=== PATIENT | female | born 1940 | race Caucasian/White ===

== ENCOUNTER 2016-09-29 08:20 | Observation (INO) ==
[2016-09-29] MEDS ORDERED: 0.9 % SODIUM CHLORIDE 1,000 ML IV ONE ×2 (08:34→09:39)
[2016-09-29 09:08] LABS: Basophils # (Auto) 0 K/mcL (0.0-0.3); Basophils % (Auto) 0 % (0.0-2.0); Eosinophils # (Auto) 0.2 K/mcL (0.0-0.7); Eosinophils % (Auto) 3.9 % (0.0-7.0); Granulocytes % (Auto) 71.1 % (38.0-78.0); Lymphocytes # (Auto) 0.7 K/mcL (1.5-4.8); Lymphocytes % (Auto) 13.5 % (15.5-49.0); Mean Cell Volume 91.2 fL (80.0-100.0); Mean Corpuscular HGB Conc 34.5 g/dL (31.0-36.0); Mean Corpuscular Hemoglobin 31.5 pg (26.0-34.0); Monocytes # (Auto) 0.6 K/mcL (0.1-0.9); Monocytes % (Auto) 11.5 % (1.0-12.0); Platelet Count 199 K/mcL (140-440); Red Cell Distribution Width 11.9 % (11.5-14.5)
[2016-09-29] MEDS ORDERED: ONDANSETRON 4 MG/2 ML VIAL IV ONE ×3 (09:35→13:33)
[2016-09-29 09:36] LABS: ALT/SGPT 12 U/l (0-40); Albumin 3.8 gm/dL (3.2-5.2); Albumin/Globulin Ratio 1.6 (1.0-2.3); Alkaline Phosphatase 50 U/L (39-117); Blood Urea Nitrogen 9 mg/dl (8-23)
--- NOTE | 2016-09-29 09:42 | Emergency Department Note ---
Syncope HPI - General Chief Complaint: Syncope Stated Complaint: Syncope, N/V Time Seen by Provider: 09/29/16 09:20 Source: patient, EMS Mode of arrival: wheelchair Limitations: no limitations - History of Present Illness HPI Narrative: 76-year-old female with a history of possible syncope episode and possible seizure disorder. Patient initially was seen 3 days ago in the ED for viral syndrome. Then went to see her primary care provider the next day for the cough and had a chest x-ray which was negative and treated for bronchitis with Levaquin. States she did not tolerate the Levaquin very well she had nausea and vomiting. This morning at breakfast she felt lightheaded she called for her states that he saw her stiffen roughly 2-3 minutes and her eyes rolling. Was no tremors and no evidence of an MALT type seizure is no defecation or urination. She had no postictal state.. aesthetician did arrive she is complaining mostly of nausea at this time.. She has no history of seizure disorder in the past.. She states she does drink 1-2 passes of wine a day but has not over the past 4 days. One year ago she was drinking 3-4 glasses of hard liquor a day but has cut back since then. Her chest x-ray performed on Tuesday was normal Dr. Sanchez. - Related Data Allergies Allergy/AdvReac Type Severity Reaction Status Date / Time iodine Allergy Intermediate Hives Verified 09/29/16 08:27 penicillin V Allergy Intermediate HUGE WELT Verified 09/29/16 08:27 AT INJECTION SITE sulfamethoxazole Allergy Intermediate Hives Verified 09/29/16 08:27 Gadolinium-Containing Allergy Unknown hive Verified 09/29/16 08:27 Contrast Medi [GADOLINIUM-CONTAINING AGENTS] From [facility] Allergy Intermediate IN EXCESS Uncoded 09/06/14 05:06 CAUSES HIVES Review of Systems Constitutional: Denies: fever, chills Eyes: Denies: eye pain ENT ED: Denies: ear pain Cardiovascular: Denies: chest pain Respiratory: Denies: cough Gastrointestinal: Reports: nausea Genitourinary: Denies: urgency, dysuria Musculoskeletal: Denies: back pain Integumentary: Denies: rash Neurological: Denies: headache Psychiatric: Denies: anxiety Endocrine: Denies: fatigue Hematological/Lymphatic: Denies: easy bleeding Allergic/Immunologic: Denies: as per HPI Past Medical History - Past Medical History Medical history: Reports: non-contributory, GERD Surgical history ED: Reports: non-contributory Family history: Reports: hypertension - Social History smoking status: Former smoker Alcohol use: Reports: Occasionally Drug use: Reports: none (1-2 glasses of wine a day) Physical Exam - General Limitations: no limitations General appearance: alert - Head Head exam: atraumatic - Eye Eye exam: Present: normal appearance, PERRL - ENT ENT exam: normal exam, normal oropharynx - Neck Neck exam: Present: normal inspection, full ROM - Chest Chest inspection: Present: normal inspection, symmetric chest wall rise - Respiratory Respiratory exam: Present: normal lung sounds bilaterally. Absent: respiratory distress, wheezes - Cardiovascular Cardiovascular exam: Present: regular rate, normal rhythm - Abdominal Exam Abdominal exam: Present: soft. Absent: distention, tenderness, guarding, rebound - Extremities Exam Extremities exam: Present: normal inspection, full ROM. Absent: tenderness - Back Exam Back exam: Present: normal inspection, full ROM, tenderness - Expanded Neurological Exam Patient oriented to: Present: person, place, time Speech: Present: fluid speech Cranial nerves: EOM function (II, III, IV, ): Normal, facial sensation (V): Normal, facial palsy (VII): Normal, gag reflex (IX): Normal, spinal accessory function (XI): Normal, tongue deviation (XII): Normal Cerebellar function: finger to nose: Normal Cerebellar function: normal gait Motor strength - LUE: 5/5 Motor strength - RUE: 5/5 Motor strength - LLE: 5/5 Motor strength - RLE: 5/5 Upper motor neuron exam: Babinski sign: Absent bilaterally Sensory exam upper extremity: Normal: light touch Sensory exam lower extremity: Normal: light touch DTR: 2+: patellar (L), patellar (R) Coma Scale Eye Opening: Spontaneous Coma Scale Motor Response: Obeys Commands Coma Scale Verbal Response: Oriented Coma Scale Total: 15 Course Vital Signs Temperature 97.7 F 09/29/16 08:21 Pulse Rate 59 L 09/29/16 08:21 Respiratory Rate 14 09/29/16 08:21 Blood Pressure 110/69 09/29/16 08:21 Pulse Oximetry (%) 97 09/29/16 08:21 Temperature 97.7 F 09/29/16 08:21 Pulse Rate 67 09/29/16 11:05 Respiratory Rate 16 09/29/16 11:05 Blood Pressure 153/95 09/29/16 11:01 Pulse Oximetry (%) 97 09/29/16 11:05 Syncope - [facility] Narrative Medical decision making narrative: Laboratory tests are all normal. She is wanting to go now we had to talk her into stay to wait for the laboratory tests. She was feeling much improved sized to increase her fluid level - Lab Data Result diagrams: 09/29/16 08:34 09/29/16 08:34 Lab Results 09/29/16 09/29/16 09/29/16 Range/Units 08:34 08:34 08:34 WBC 5.2 (4.5-11.0) K/mcL RBC 3.70 L (4.00-5.20) M/mcL Hgb 11.6 L (12.0-15.0) g/dL Hct 33.7 L (36.0-48.0) % MCV 91.2 (80.0-100.0) fL MCH 31.5 (26.0-34.0) pg MCHC 34.5 (31.0-36.0) g/dL RDW 11.9 (11.5-14.5) % Plt Count 199 (140-440) K/mcL MPV 9.9 (7.4-10.4) fL Gran % 71.1 (38.0-78.0) % Lymph % (Auto) 13.5 L (15.5-49.0) % [place] % (Auto) 11.5 (1.0-12.0) % Eos % (Auto) 3.9 (0.0-7.0) % Baso % (Auto) 0 (0.0-2.0) % Gran # 3.7 (1.8-8.0) K/mcL Lymph # (Auto) 0.7 L (1.5-4.8) K/mcL [place] # (Auto) 0.6 (0.1-0.9) K/mcL Eos # (Auto) 0.2 (0.0-0.7) K/mcL Baso # (Auto) 0 (0.0-0.3) K/mcL VBG Lactic Acid (0.5-2.2) mmol/L Sodium 124 L (133-145) mmol/L Potassium 4.0 (3.3-5.1) mmol/L Chloride 87 L (96-108) mmol/L Carbon Dioxide 22 (22-30) mmol/L Anion Gap 15.0 (8-16) BUN 9 (8-23) mg/dl Creatinine 0.6 (0.6-1.1) mg/dl GFR Calculation 89 Glucose 124 H (70-105) mg/dL Calcium 8.2 L (8.6-10.4) mg/dl Total Bilirubin 0.4 (0.0-1.0) mg/dL AST 24 (0-37) U/l ALT 12 (0-40) U/l Alkaline Phosphatase 50 (39-117) U/L Total Creatine Kinase (24-170) IU/L CK-MB (CK-2) (0-2.9) ng/ml Myoglobin (25-58) ng/ml Troponin T < 0.01 (0-0.03) ng/ml Total Protein 6.2 (5.9-8.4) gm/dL Albumin 3.8 (3.2-5.2) gm/dL Globulin 2.4 (2.2-3.7) gm/dL Albumin/Globulin Ratio 1.6 (1.0-2.3) Ethyl Alcohol (<0.010) gm/dl 09/29/16 09/29/16 09/29/16 Range/Units 08:34 08:34 09:05 WBC (4.5-11.0) K/mcL RBC (4.00-5.20) M/mcL Hgb (12.0-15.0) g/dL Hct (36.0-48.0) % MCV (80.0-100.0) fL MCH (26.0-34.0) pg MCHC (31.0-36.0) g/dL RDW (11.5-14.5) % Plt Count (140-440) K/mcL MPV (7.4-10.4) fL Gran % (38.0-78.0) % Lymph % (Auto) (15.5-49.0) % [place] % (Auto) (1.0-12.0) % Eos % (Auto) (0.0-7.0) % Baso % (Auto) (0.0-2.0) % Gran # (1.8-8.0) K/mcL Lymph # (Auto) (1.5-4.8) K/mcL [place] # (Auto) (0.1-0.9) K/mcL Eos # (Auto) (0.0-0.7) K/mcL Baso # (Auto) (0.0-0.3) K/mcL VBG Lactic Acid 1.4 (0.5-2.2) mmol/L Sodium (133-145) mmol/L Potassium (3.3-5.1) mmol/L Chloride (96-108) mmol/L Carbon Dioxide (22-30) mmol/L Anion Gap (8-16) BUN (8-23) mg/dl Creatinine (0.6-1.1) mg/dl GFR Calculation Glucose (70-105) mg/dL Calcium (8.6-10.4) mg/dl Total Bilirubin (0.0-1.0) mg/dL AST (0-37) U/l ALT (0-40) U/l Alkaline Phosphatase (39-117) U/L Total Creatine Kinase 95 (24-170) IU/L CK-MB (CK-2) 1.9 (0-2.9) ng/ml Myoglobin 245 H (25-58) ng/ml Troponin T (0-0.03) ng/ml Total Protein (5.9-8.4) gm/dL Albumin (3.2-5.2) gm/dL Globulin (2.2-3.7) gm/dL Albumin/Globulin Ratio (1.0-2.3) Ethyl Alcohol < 0.010 (<0.010) gm/dl Disposition Clinical Impression: Dehydration Condition: Fair Instructions: Dehydration (ED) Additional Instructions: increase fluids Referrals: Sanya Echeverria, [Primary Care Provider] -
--- NOTE | 2016-09-29 09:50 | XRay Report ---
CLINICAL INFORMATION: Cough and vomiting COMPARISON: 09/27/2016 FINDINGS: Heart size, mediastinum and pulmonary vessels are normal. There is minor airspace disease in the left base which could indicate developing infiltrate. There are no effusions. IMPRESSION: There is minor airspace disease in the left base possibly representing a developing infiltrate Interpreted and Authenticated by: Danielito Espinosa 09/29/16
--- NOTE | 2016-09-29 10:28 | Cat Scan Report ---
CLINICAL INFORMATION: Seizure COMPARISON: 04/25/2012. TECHNIQUE: 2.5 mm helical slices were obtained in the skull base to vertex. Following reconstruction, axial reformatted images were reviewed at bone and parenchymal windows. FINDINGS: The ventricles, sulci, fissures, and cisterns are symmetrically enlarged compatible with mild age-related atrophy this is unchanged. No extra-axial fluid collections or masses. Minimal chronic ischemic changes in the cerebral white matter are stable. There is no acute cerebral hemorrhage, mass effect edema or other acute finding. There is opacification of the right sphenoid sinus which is new. Moderate air-fluid level also the left sphenoid sinus there is moderate opacification of the ethmoid sinuses IMPRESSION: Minimal atrophy and chronic ischemic changes in the deep cerebral white matter expected for age - only slight progression since prior CT. No hemorrhage or other acute intracerebral process. Severe right sphenoid sinusitis - new. Moderate left sphenoid and bilateral ethmoid sinusitis -all new Interpreted and Authenticated by: Danielito Espinosa 09/29/16
[2016-09-29 10:30] LABS: Creatine Kinase MB 1.9 ng/ml (0-2.9); Myoglobin 245 ng/ml (25-58)
[2016-09-29 10:32] LABS: Creatine Kinase 95 IU/L (24-170)
[2016-09-29] MEDS ORDERED: ACETAMINOPHEN 325 MG TABLET PO ONE (10:45)
[2016-09-29] MEDS ORDERED: cefTRIAXone 1 GM in DEXTROSE 5% IN WATER 50 ML IV ONE (10:53)
[2016-09-29] MEDS ORDERED: AZITHROMYCIN 500 MG in DEXTROSE 5% IN WATER 250 ML IV SCH (11:00)
[2016-09-29] MEDS ORDERED: LEVOFLOXACIN 500 MG/100 ML BAG IV ONE (12:03)
[2016-09-29] MEDS ORDERED: diphenhydrAMINE 50 MG/ML VIAL IV ONE (12:03)
[2016-09-29] MEDS ORDERED: ONDANSETRON 4 MG/2 ML VIAL ONE (13:28)
--- NOTE | 2016-09-29 13:41 | Internal Med History&Physical ---
Medical - H&P: HPI Patient information: Note initiated : 09/29/16 at 1:36 pm Patient: Ellen Bloom 76 y/o F admitted on for Syncope, N/V. History of present illness: Ms. Néstor Paris is a 76 year old female who was in her normal state of health until about 5 days ago. Last Tuesday evening she says she began to have fever and chills and a cough and generally felt ill. 4 days ago she went to the emergency room, and was told she might have a viral infection. She was given cough syrup and sent home. By yesterday she did not feel any better, so she went to see her primary care physician. Chest x-ray at that time was reported as normal. She was started on Levaquin to cover possible bronchitis. She took that yesterday. She says she has continued to cough and has gagging from the coughing. She has been drinking lots of water because her throat has been dry and scratchy. This morning she went down to the kitchen to get something to eat, and says the room started spinning. She called out for her and then sat down. Her says when he got into the kitchen she was slumped over and by the time he walked over to her, her head extended back and her whole body became rigid, and she seemed to be foaming at the mouth. He called 911 and had her brought to the emergency room. He thinks the whole episode lasted 2-3 minutes. The patient recalls the events leading up to her probable seizure. She says she has a mild headache, and her throat is been a little bit scratchy and sore from all the coughing. She has been noticing increased muscle spasms lately, and said she had that once before when she had hyponatremia. She otherwise denies new eye or ear symptoms, dysphasia, swollen glands, chest pain or palpitations, shortness of breath, abdominal pain, nausea or vomiting, diarrhea or constipation, or dysuria. She has felt generally achy. She notes she was diagnosed with hyponatremia a couple of years ago after doing a colon cleanse and drinking lots of water. He does currently take hydrochlorothiazide for hypertension. ER evaluation did show hyponatremia, as well as sphenoid sinusitis, and also possible early basilar pneumonia. Past medical history: GERD Past history of alcohol abuse Past history of smoking ? Has history of hyponatremia Generalized anxiety disorder Allergic rhinitis [place] hypertension Hypothyroidism UTI Osteoporosis Surgical history: Cervical arthrodesis, breast surgery, bunion surgery, cataract surgery, knee surgery, tubal ligation Current medications: Levaquin 500 mg daily, started yesterday. Aspirin 81 mg daily Biotin 10,000 mcg daily Bisoprolol 5 mg daily Bisoprolol-HCTZ 2.5-6.25 1 twice daily Calcium 500 mg daily Fish oil 1000 mg daily Flonase nasal spray 1 spray each nostril daily Ketorolac 0.4% ophthalmic solution Levothyroxine 75 mcg daily Lorazepam 1 mg twice daily as needed Magnesium 200 mg daily Montelukast 10 mg daily Probiotics 1 daily Robitussin CF syrup as needed Vitamin B complex daily Vitamin D 2000 units daily allergies: Azithromycin-- hives/rash, just noted today when being given IV in the emergency room. Iodine-hives Penicillin-welt at injection site Sulfamethoxazole-hives IV gadolinium dye--hives Crabs--hives Family history: Hypertension (both parents), Parkinson's disease, presenile dementia Social history: Patient is and lives with her . She previously smoked. She previously drank heavily a year or so ago, and now drinks 1-2 glasses of wine per day. Medical - H&P: Meds Home Medications Medication Instructions Recorded Confirmed Type Aspirin [Adult Low Dose Aspirin EC] 81 mg PO DAILY 09/29/16 09/29/16 History B Complex with Vitamin C [Vitamin 1 each PO DAILY 09/29/16 09/29/16 History B-Complex with Vit C] Biotin 1 mg PO DAILY 09/29/16 09/29/16 History Bisoprolol Fumarate 5 mg PO DAILY 09/29/16 09/29/16 History Bisoprolol Fumarate/Hctz 2 each PO DAILY 09/29/16 09/29/16 History [Bisoprolol-Hctz 2.5-6.25 mg Tb] Fluticasone Propionate [Flonase] 2 spray NS DAILY 09/29/16 09/29/16 History Ipratropium/Albuterol Sulfate 1 puff INH BID 09/29/16 09/29/16 History [Combivent] L.acidop,Brock,Lac,Rha/B.lac,Marcial 625 mg PO DAILY 09/29/16 09/29/16 History [Advanced Probiotic Capsule] LORazepam [Ativan] 0.5 - 1 mg PO PRN PRN 09/29/16 09/29/16 History Levofloxacin [Levaquin] 500 mg PO DAILY 09/29/16 09/29/16 History Levothyroxine [Synthroid] 75 mcg PO DAILY 09/29/16 09/29/16 History Montelukast [Singular] 10 mg PO DAILY 09/29/16 09/29/16 History Vitamin D3 1,000 unit PO DAILY 09/29/16 09/29/16 History Allergies Allergy/AdvReac Type Severity Reaction Status Date / Time azithromycin Allergy Intermediate Hives Verified 09/29/16 15:25 iodine Allergy Intermediate Hives Verified 09/29/16 08:27 penicillin V Allergy Intermediate HUGE WELT Verified 09/29/16 08:27 AT INJECTION SITE sulfamethoxazole Allergy Intermediate Hives Verified 09/29/16 08:27 Gadolinium-Containing Allergy Unknown hive Verified 09/29/16 08:27 Contrast Medi [GADOLINIUM-CONTAINING AGENTS] From [facility] Allergy Intermediate IN EXCESS Uncoded 09/06/14 05:06 CAUSES HIVES Medical - H&P: Exam - Constitutional Vitals: Temp Pulse Resp BP Pulse Ox 97.7 F 65 16 146/70 97 09/29/16 08:21 09/29/16 13:23 09/29/16 13:23 09/29/16 13:02 09/29/16 13:23 On exam, the patient is awake and alert, and is in no acute distress. Head: Normocephalic atraumatic. Eyes: PERRLA, EOMI, anicteric. Ears: TMs and canals are clear. Pharynx: Pharynx is clear. Teeth are in good repair. Mucosa is a bit dry. Neck: Supple, without lymphadenopathy, JVD, thyromegaly, bruits. Cardiac exam: Shows regular rate and rhythm, with normal S1 and S2, without murmurs, rubs, gallops. Lungs: Clear to auscultation, without rales, rhonchi, wheezes. Abdomen: Is soft and nontender, with no masses. Bowel sounds are normoactive. Extremities: Show no cyanosis, clubbing, edema. Neurologic exam: Patient is alert and oriented 3. Mood and affect appear normal. Cranial nerves II through XII are grossly intact. Motor exam shows 5 out of 5 strength throughout. Cerebellar exam shows normal finger to finger and finger to nose exam. There is no pronator drift or tremor. Sensory exam is intact to light touch throughout. Deep tendon reflexes: 2+ at the biceps. Patient had trouble relaxing for lower extremity exam, so I did not get good reflexes. She withdraws to plantar stimulation. Skin exam: Shows no obvious rashes or other worrisome lesions. Medical - H&P: Reslt - Labs CBC & Chem 7: 09/29/16 08:34 09/29/16 08:34 Labs: Short CBC 09/29/16 Range/Units 08:34 WBC 5.2 (4.5-11.0) K/mcL Hgb 11.6 L (12.0-15.0) g/dL Hct 33.7 L (36.0-48.0) % Plt Count 199 (140-440) K/mcL BMP 09/29/16 08:34 Sodium 124 L Potassium 4.0 Chloride 87 L Carbon Dioxide 22 BUN 9 Creatinine 0.6 Glucose 124 H Calcium 8.2 L Cardiac Enzymes 09/29/16 09/29/16 Range/Units 08:34 08:34 Total Creatine Kinase 95 (24-170) IU/L CK-MB (CK-2) 1.9 (0-2.9) ng/ml Troponin T < 0.01 (0-0.03) ng/ml Liver Function 09/29/16 Range/Units 08:34 Total Bilirubin 0.4 (0.0-1.0) mg/dL AST 24 (0-37) U/l ALT 12 (0-40) U/l Alkaline Phosphatase 50 (39-117) U/L Albumin 3.8 (3.2-5.2) gm/dL Head CT: Severe right sphenoid sinusitis, moderate left sphenoid and bilateral ethmoid sinusitis. Minimal atrophy and chronic ischemic changes. Next Chest x-ray: Minor airspace disease in the left base, possible developing infiltrate. EKG: Shows normal sinus rhythm at a rate of about 60. No acute ischemic changes noted. Medical - H&P: A/P (1) Seizure Current visit: Yes Status: Acute (2) Hyponatremia Current visit: Yes Status: Acute (3) Sinusitis chronic, sphenoidal Current visit: Yes Status: Acute (4) Pneumonia Current visit: Yes Status: Acute - Narrative A/P Narrative: #1. Neurologic. Possible new seizure. This may be related to acute hyponatremia. This may also be related to the use of Levaquin recently, or due to acute lung process. She also takes HCTZ, which increases her risk for hyponatremia, particularly in terms of her tendency to drink lots of water. . Head CT does not show any worrisome brain lesions. -Admit to monitor, to telemetry. Seizure precautions. Correct hyponatremia. I think we can assume this is of relatively acute onset, so can be corrected quickly. Discontinue Levaquin and HCTZ. 2. Infectious disease. -Head CT suggests severe sinusitis, and chest x-ray suggests possible pneumonia. Consider pneumonia vaccine, if she has not had this. -She has numerous antibiotic reactions. We will try covering her pneumonia with Rocephin. I may need to add clindamycin to also cover anaerobes for her sinuses. 3. Endocrine. -Patient presents with hyponatremia. She also had mild hyponatremia last year. -check urine sodium to evaluate for SIADH versus other causes. This may be related to her apparent pneumonia. 4. CODE STATUS: Full code. 5. DVT prophylaxis: Subcu heparin. 6. History of tobacco abuse-abstinent. 7. History of alcohol abuse-she now drinks 1-2 glasses of wine per day only. I am not really suspicious of alcohol withdrawal symptoms 8. GI. Reported nausea and vomiting recently, which she blames on the cough. 9. Hypertension. Continue aspirin. Continue bisoprolol. 10. History of allergic rhinitis. Continue Flonase and montelukast. 11. Hypothyroidism. Continue levothyroxine. 12.History of anxiety. Continue as needed lorazepam. 13.? History of osteoporosis. Calcium and vitamin D replacement. This visit took approximately 55 minutes, to review the patient's records, interview and examine her, reviewed plan of care with she and her , and write orders.
[2016-09-29 14:09] LABS: Amphetamine Screen,Urine NONE DETECTED (NONDETECTED); Benzodiazepines Screen,Urine NONE DETECTED (NONDETECTED); Cocaine Screen,Urine NONE DETECTED (NONDETECTED); Opiate Screen,Urine NONE DETECTED (NONDETECTED); Oxycodone, Urine Screen NONE DETECTED (NONDETECTED)
[2016-09-29 14:22] LABS: Appearance,Urine CLEAR; Bacteria,Urine 0 /hpf (0); Bilirubin,Urine NEG (NEG); Color,Urine YELLOW; Glucose,Urine (UA) NEGATIVE (NEG); Leukocyte Esterase,Urine NEG /uL (NEG); Nitrate,Urine NEG (NEG); Protein,Urine NEG (NEG); Specific Gravity,Urine 1.011 (1.000-1.035); Urine Blood NEG mg/dL (<0.03); Urine RBC 2 /hpf (0-1); Urine Squamous Epithelial Cell < 1 /hpf (0-4); Urine WBC < 1 /hpf (0-4); Urobilinogen,Urine NEG (NEG)
[2016-09-29] MEDS ORDERED: MAGNESIUM HYDROXIDE 30 ML ORAL.SUSP PO PRN (15:17)
[2016-09-29] MEDS ORDERED: ONDANSETRON 4 MG/2 ML VIAL IV PRN (15:17)
[2016-09-29] MEDS ORDERED: PNEUMOCOCCAL 23-VAL P-SAC VAC 0.5 ML VIAL IM ONE (15:17)
[2016-09-29] MEDS ORDERED: POTASSIUM CHLORIDE 20 MEQ in 0.9 % SODIUM CHLORIDE 1,000 ML IV SCH (15:17)
[2016-09-29] MEDS: NACL 0.9% W/KCL 20MEQ 1,000 ML IV SCH (15:31)
[2016-09-29] MEDS: ACETAMINOPHEN 325 MG TABLET PO PRN (15:49)
[2016-09-29 16:22] LABS: Hemoglobin A1C 5.3 % HGB (4.0-6.0)
[2016-09-29] MEDS ORDERED: BENZONATATE 100 MG CAPSULE PO PRN (16:42)
[2016-09-29] MEDS: ALBUTEROL SULFATE 2.5 MG/3 ML NEBULIZER NEB SCH (19:19)
[2016-09-29 20:11] LABS: Blood Urea Nitrogen 7 mg/dl (8-23)
[2016-09-29] MEDS: HEPARIN 5,000 UNIT/ML VIAL SQ SCH (20:39)
[2016-09-29] MEDS ORDERED: FUROSEMIDE 20 MG/2 ML VIAL IV ONE ×2 (20:46→20:51)
[2016-09-30] MEDS: ALBUTEROL SULFATE 2.5 MG/3 ML NEBULIZER NEB SCH ×3 (01:24→13:58)
[2016-09-30] MEDS: NACL 0.9% W/KCL 20MEQ 1,000 ML IV SCH (03:42)
[2016-09-30 06:21] LABS: Basophils # (Auto) 0 K/mcL (0.0-0.3); Basophils % (Auto) 0.2 % (0.0-2.0); Eosinophils # (Auto) 0 K/mcL (0.0-0.7); Eosinophils % (Auto) 0.9 % (0.0-7.0); Granulocytes % (Auto) 64.1 % (38.0-78.0); Lymphocytes # (Auto) 1.1 K/mcL (1.5-4.8); Lymphocytes % (Auto) 21.7 % (15.5-49.0); Mean Cell Volume 93.4 fL (80.0-100.0); Mean Corpuscular HGB Conc 34.2 g/dL (31.0-36.0); Mean Corpuscular Hemoglobin 31.9 pg (26.0-34.0); Monocytes # (Auto) 0.6 K/mcL (0.1-0.9); Monocytes % (Auto) 13.1 % (1.0-12.0); Platelet Count 192 K/mcL (140-440); RBC 3.28 M/mcL (4.00-5.20); Red Cell Distribution Width 12.4 % (11.5-14.5)
[2016-09-30 06:52] LABS: ALT/SGPT 13 U/l (0-40); Albumin 3.3 gm/dL (3.2-5.2); Albumin/Globulin Ratio 1.2 (1.0-2.3); Alkaline Phosphatase 45 U/L (39-117); Bilirubin,Direct < 0.2 mg/dL (0.0-0.3); Blood Urea Nitrogen 6 mg/dl (8-23); Gamma Glutamyl Transpeptidase 9 U/L (5-36); Magnesium 1.9 mg/dL (1.6-2.5); Uric Acid 3.1 mg/dL (2.5-8.0)
[2016-09-30] MEDS ORDERED: LEVOTHYROXINE 75 MCG TABLET PO SCH (07:30)
[2016-09-30] MEDS ORDERED: POTASSIUM CHLORIDE 40 MEQ in DEXTROSE 5% IN WATER 500 ML IV ONE (08:00)
[2016-09-30] MEDS: LORazepam 0.5 MG TABLET PO PRN ×2 (08:50→08:57)
[2016-09-30] MEDS: ACETAMINOPHEN 325 MG TABLET PO PRN (08:55)
[2016-09-30] MEDS: HEPARIN 5,000 UNIT/ML VIAL SQ SCH (08:56)
[2016-09-30] MEDS ORDERED: MONTELUKAST 10 MG TABLET PO SCH (09:00)
[2016-09-30] MEDS ORDERED: VITAMIN D3 1,000 UNIT TABLET PO SCH (09:00)
[2016-09-30] MEDS ORDERED: FLUTICASONE PROPIONATE SPRAY.NAS NS SCH (09:00)
[2016-09-30] MEDS ORDERED: BISOPROLOL 5 MG TABLET PO SCH (09:00)
[2016-09-30] MEDS ORDERED: ASPIRIN 81 MG TAB.CHEW PO SCH (09:00)
[2016-09-30] MEDS ORDERED: cefTRIAXone 1 GM in DEXTROSE 5% IN WATER 50 ML IV SCH (09:00)
--- NOTE | 2016-09-30 10:27 | Discharge Summary ---
Medical - DS: Prov Patient information: Note initiated : 09/30/16 at 10:26 am Patient: Ellen Bloom 76 y/o F admitted on 09/29/16 for Syncope, N/V. Date of admission: 09/29/16 14:30 Discharge date: 09/30/16 Primary care physician: Sanya Echeverria Phone #r [phone] Admitting clinician: Patti Guy Attending physician on discharge: Patti Guy Medical - DS: Meds - Discharge Medications Prescriptions: Benzonatate [Tessalon] 100 mg PO TIDP PRN #20 capsule PRN Reason: Cough Clindamycin [Cleocin] 150 mg PO TID #30 capsule guaiFENesin [Mucinex] 600 mg PO BIDP #30 tab Active and Home Medications: Discharge medications: Clindamycin 150 mg 3 times daily Flonase 1 spray each nostril twice daily Mucinex 600 mg p.o. twice daily Tessalon Perles 100 mg 3 times daily as needed cough Tylenol 650 mg every 6 hours as needed Albuterol inhaler every 6 hours as needed Aspirin 81 mg daily Bisoprolol 5 mg daily Bisoprolol-HCTZ 2.5-6.252 dailyconsider discontinuing HCTZ, regarding tendency for hyponatremia Biotin 1 mg daily B complex 1 daily Levothyroxine 75 mcg daily Ativan 0.5 mg every 8 hours as needed anxiety Singulair 10 mg daily Vitamin D 1000 units daily Probiotics 1 daily Combivent 1 puff twice daily Calcium 500 mg once or twice a day. Prior home Medications Aspirin [Adult Low Dose Aspirin EC] 81 mg PO DAILY 09/29/16 [History Confirmed 09/29/16 Last Taken Unknown] B Complex with Vitamin C [Vitamin B-Complex with Vit C] 1 each PO DAILY [History Confirmed 09/29/16 Last Taken Unknown] Biotin 1 mg PO DAILY 09/29/16 [History Confirmed 09/29/16 Last Taken Unknown] Bisoprolol Fumarate 5 mg PO DAILY 09/29/16 [History Confirmed 09/29/16 Last Taken Unknown] Bisoprolol Fumarate/Hctz [Bisoprolol-Hctz 2.5-6.25 mg Tb] 2 each PO DAILY [History Confirmed 09/29/16 Last Taken Unknown] Fluticasone Propionate [Flonase] 2 spray NS DAILY 09/29/16 [History Confirmed Last Taken Unknown] Ipratropium/Albuterol Sulfate [Combivent] 1 puff INH BID 09/29/16 [History Confirmed 09/29/16 Last Taken Unknown] L.acidop,Brock,Lac,Rha/B.lac,Marcial [Advanced Probiotic Capsule] 625 mg PO DAILY [History Confirmed 09/29/16 Last Taken Unknown] LORazepam [Ativan] 0.5 - 1 mg PO PRN PRN 09/29/16 [History Confirmed 09/29/16 Last Taken Unknown] Levofloxacin [Levaquin] 500 mg PO DAILY 09/29/16 [History Confirmed 09/29/16 Last Taken Unknown] Levothyroxine [Synthroid] 75 mcg PO DAILY 09/29/16 [History Confirmed 09/29/16 Last Taken Unknown] Montelukast [Singular] 10 mg PO DAILY 09/29/16 [History Confirmed 09/29/16 Last Taken Unknown] Vitamin D3 1,000 unit PO DAILY 09/29/16 [History Confirmed 09/29/16 Last Taken Unknown] Medical - DS: Hosp Hospital course: Mr. Néstor Paris is a 76 year old F September 29, 2016: History of present illness: Ms. Néstor Paris is a 76 year old female who was in her normal state of health until about 5 days ago. Last Tuesday evening she says she began to have fever and chills and a cough and generally felt ill. 4 days ago she went to the emergency room, and was told she might have a viral infection. She was given cough syrup and sent home. By yesterday she did not feel any better, so she went to see her primary care physician. Chest x-ray at that time was reported as normal. She was started on Levaquin to cover possible bronchitis. She took that yesterday. She says she has continued to cough and has gagging from the coughing. She has been drinking lots of water because her throat has been dry and scratchy. This morning she went down to the kitchen to get something to eat, and says the room started spinning. She called out for her and then sat down. Her says when he got into the kitchen she was slumped over and by the time he walked over to her, her head extended back and her whole body became rigid, and she seemed to be foaming at the mouth. He called 911 and had her brought to the emergency room. He thinks the whole episode lasted 2-3 minutes. The patient recalls the events leading up to her probable seizure. She says she has a mild headache, and her throat is been a little bit scratchy and sore from all the coughing. She has been noticing increased muscle spasms lately, and said she had that once before when she had hyponatremia. She otherwise denies new eye or ear symptoms, dysphasia, swollen glands, chest pain or palpitations, shortness of breath, abdominal pain, nausea or vomiting, diarrhea or constipation, or dysuria. She has felt generally achy. She notes she was diagnosed with hyponatremia a couple of years ago after doing a colon cleanse and drinking lots of water. He does currently take hydrochlorothiazide for hypertension. ER evaluation did show hyponatremia, as well as sphenoid sinusitis, and also possible early basilar pneumonia. September 30: -The patient was admitted to the ICU for close observation, and placed on seizure precautions. She did not have any further neurologic events overnight. Because of hyponatremia is uncertain, but could have been related to hyponatremia, and or Levaquin. Head CT did not show any pathology. I do not believe this episode heralded onset of a new seizure disorder. Therefore, I do not think she needs seizure medications or needs to limit driving. She was treated with IV normal saline for her hyponatremia. This did not seem to be improving much towards evening, and her urine sodium was elevated, so Lasix was given, for possible delusional hyponatremia. Sodium is much improved this morning. The patient did say that she was drinking lots of water at home, trying to stay hydrated. The cause of her hyponatremia was likely multifactorial, given possible pneumonia, chronic HCTZ use, possible water intoxication. Head CT did show severe sinusitis. Chest x-ray was also suggestive of pneumonia. She was recently treated with Levaquin, but only received 1 dose. She did receive IV Rocephin in the hospital. She has been intolerant of numerous antibiotics over the years. She believes she has tolerated clindamycin in the past, so she was started on oral clindamycin today. She should also consider taking Mucinex, and continue Flonase and Singulair. She could consider nasal irrigations as well. She did have some nausea and vomiting recently, and clindamycin would help to cover aspiration as well. She did have a temperature earlier today of 100.5. White blood cell count is normal. Lactic acid was normal. Potassium was low this morning, and was replaced IV. Ionized calcium was low today, for uncertain reasons. She should consider taking a calcium supplement. Today, she notes she is feeling fine, although she is a bit anxious about whether it is safe to be at home alone. She says her is actually with her most of the time, but she describes that he may not be an overly attentive caregiver. She otherwise denies fever or chills, headaches or dizziness, nasal discharge. She does continue to have a moderate cough. She denies chest pain or shortness of breath, abdominal pain, nausea or vomiting, diarrhea or constipation, dysuria. On exam, she is sitting up in a chair, eating. She is not in any distress. Neck is supple without obvious lymphadenopathy or JVD. Cardiac exam shows regular rate and rhythm. Lungs are clear to auscultation. Abdomen is soft. Extremities show no edema. Neurologic exam is grossly nonfocal. Assessment and plan: #1. Neurologic. Possible new seizure. This may be related to acute hyponatremia. This may also be related to the use of Levaquin recently, or due to acute lung process. She also takes HCTZ, which increases her risk for hyponatremia, particularly in terms of her tendency to drink lots of water. . Head CT does not show any worrisome brain lesions. -The patient was monitored on telemetry overnight, and had no further events. Sodium was corrected. Levaquin was discontinued. 2. Infectious disease. -Head CT suggests severe sinusitis, and chest x-ray suggests possible pneumonia. Consider pneumonia vaccine, if she has not had this. -She has numerous antibiotic reactions. -Oral clindamycin was prescribed today, to cover both her sinuses and her lungs. She should also continue with her Flonase. She should consider adding Mucinex. She could also consider nasal saline rinses as well. Tessalon was added for cough. 3. Endocrine. -Patient presents with hyponatremia. She also had mild hyponatremia last year. HCTZ was held. Patient was given 1 dose of IV Lasix, as her urine sodium was elevated, and I thought she might be volume overloaded. -Calcium is low this morning, for uncertain reasons. She should consider taking an oral supplement. 4. CODE STATUS: Full code. 5. DVT prophylaxis: Subcu heparin. 6. History of tobacco abuse-abstinent. 7. Past history of alcohol abuse-she now drinks 1-2 glasses of wine per day only. I am not really suspicious of alcohol withdrawal symptoms 8. GI. Reported nausea and vomiting recently, which she blames on the cough. 9. Hypertension. Continue aspirin. Continue bisoprolol. She may want to consider discontinuing the HCTZ. 10. History of allergic rhinitis. Continue Flonase and montelukast. 11. Hypothyroidism. Continue levothyroxine. 12.History of anxiety. Continue as needed lorazepam. 13.? History of osteoporosis. Calcium and vitamin D replacement. Visit today took approximately 40 minutes, to review her test results, interview and examine her, write discharge prescriptions and orders. Discharge diagnosis: Single seizure. Severe hyponatremia. Possible reaction to Levaquin. Sinu Secondary discharge diagnosis: Severe sinusitis. Possible left basilar pneumonia. Hypocalcemia. Hypokalemia. - Time Spent with Patient Total time spent providing and/or coordinating discharge services: Greater than 30 minutes Medical - DS: Exam - Constitutional Vitals: Vital Signs Temp Pulse Pulse Pulse Resp BP BP 09/30/16 08:55 100.5 F H 09/30/16 07:00 82 18 09/30/16 06:55 100.5 F H 89 136/72 09/30/16 03:34 98.8 F 80 115/59 09/30/16 01:32 86 16 09/30/16 01:24 98.4 F 16 112/62 09/29/16 21:06 98.4 F 16 129/78 09/29/16 19:20 64 16 09/29/16 16:01 98.1 F 18 143/66 09/29/16 15:31 140/69 09/29/16 15:17 98.1 F 61 16 142/73 09/29/16 15:16 138/70 09/29/16 15:01 141/64 09/29/16 14:46 66 142/73 09/29/16 14:43 66 143/72 Pulse Ox 09/30/16 08:55 09/30/16 07:00 97 09/30/16 06:55 98 09/30/16 03:34 94 09/30/16 01:32 09/30/16 01:24 95 09/29/16 21:06 98 09/29/16 19:20 94 09/29/16 16:01 09/29/16 15:31 96 09/29/16 15:17 97 09/29/16 15:16 94 09/29/16 15:01 95 09/29/16 14:46 96 09/29/16 14:43 97 Intake and Output 09/29/16 09/30/16 09/30/16 21:59 05:59 13:59 Intake Total 1500 / 1500 Output Total 600 / 600 3025 / 3025 300 / 300 Balance -600 / -600 -1525 / -1525 -300 / -300 Intake: IV 1000 / 1000 NaCl 0.9% W/KCl 20Meq 1000 / 1000 1000ML 1,000 ml @ 84 mls/ hr IV .[id number] [facility] Rx#: [id number] Oral 500 / 500 Output: Urine Catheter Amount 300 / 300 Void Amount 600 / 600 3025 / 3025 Other: # Voids 1 # Bowel Movements 1 Weight 119 lb 9.6 oz Medical - DS: Data Labs on day of discharge: Labs from last 24 hours 09/30/16 09/30/16 09/30/16 07:55 03:45 03:45 WBC 4.9 RBC 3.28 L Hgb 10.5 L Hct 30.6 L MCV 93.4 MCH 31.9 MCHC 34.2 RDW 12.4 Plt Count 192 MPV 9.9 Gran % 64.1 Lymph % (Auto) 21.7 [place] % (Auto) 13.1 H Eos % (Auto) 0.9 Baso % (Auto) 0.2 Gran # 3.1 Lymph # (Auto) 1.1 L [place] # (Auto) 0.6 Eos # (Auto) 0 Baso # (Auto) 0 Sodium 135 Potassium 3.5 Chloride 99 Carbon Dioxide 23 Anion Gap 13.0 BUN 6 L Creatinine 0.7 GFR Calculation 85 Glucose 98 Uric Acid 3.1 Calcium 7.9 L Ionized Calcium Bear 1.10 L Phosphorus 3.0 Magnesium 1.9 Total Bilirubin 0.2 Direct Bilirubin < 0.2 GGT 9 AST 29 ALT 13 Alkaline Phosphatase 45 Lactate Dehydrogenase 172 Total Protein 6.0 Albumin 3.3 Globulin 2.7 Albumin/Globulin Ratio 1.2 Triglycerides 59 09/29/16 18:43 WBC RBC Hgb Hct MCV MCH MCHC RDW Plt Count MPV Gran % Lymph % (Auto) [place] % (Auto) Eos % (Auto) Baso % (Auto) Gran # Lymph # (Auto) [place] # (Auto) Eos # (Auto) Baso # (Auto) Sodium 121 L Potassium 3.9 Chloride 89 L Carbon Dioxide 22 Anion Gap 10.0 BUN 7 L Creatinine 0.6 GFR Calculation 89 Glucose 114 H Uric Acid Calcium 7.4 L Ionized Calcium Bear Phosphorus Magnesium Total Bilirubin Direct Bilirubin GGT AST ALT Alkaline Phosphatase Lactate Dehydrogenase Total Protein Albumin Globulin Albumin/Globulin Ratio Triglycerides Head CT: Severe right sphenoid sinusitis, moderate left sphenoid and bilateral ethmoid sinusitis. Minimal atrophy and chronic ischemic changes. Next Chest x-ray: Minor airspace disease in the left base, possible developing infiltrate. EKG: Shows normal sinus rhythm at a rate of about 60. No acute ischemic changes noted. Urinalysis showed 5 ketones, specific gravity 1.011, pH of 7. Urine tox screen: Is negative so far. Alcohol level was negative. Medical - DS: A/P - Patient/Caregiver Discharge Instructions Activity: increase activity as tolerated, resume usual activities as tolerated Diet: Regular Diet Additional Instructions: 1. Seizure. We think this was likely due to a combination of acute hyponatremia, and/or use of Levaquin. -Please notify your doctor right away if you have any further unusual neurologic activity/seizures. 2. Sinusitis. This appeared quite severe on your head CT scan. - We will start you on oral clindamycin. -Continue your Flonase. - Add Mucinex twice a day. -Consider saline nasal irrigations as well. -You can take Tessalon Perles as needed for cough. - Continue to use your inhalers, as needed for any coughing or wheezing or shortness of breath. -Continue Singulair. 3. Your calcium is rather low today. - Please consider taking calcium 500 mg once or twice every day. 4. Hyponatremia. Avoid drinking very large amounts of plain water. If you feel dehydrated, drink drinks that have electrolytes in them, such as Pedialyte. -Consider discontinuing her HCTZ. Reviewed this with your doctor. Prescriptions: Benzonatate [Tessalon] 100 mg PO TIDP PRN #20 capsule PRN Reason: Cough Clindamycin [Cleocin] 150 mg PO TID #30 capsule guaiFENesin [Mucinex] 600 mg PO BIDP #30 tab - Problem Maintenance (1) Seizure Status: Acute (2) Hyponatremia Status: Acute (3) Sinusitis chronic, sphenoidal Status: Acute (4) Pneumonia Status: Acute Qualifiers: Laterality: left Lung location: lower lobe of lung - Follow up Plan Follow up with: Sanya Echeverria DO [Primary Care Provider] - 10/18/16 10:00 am Disposition: Home, Self-Care Prognosis: Good Rehab Potential: Good I certify that the patient requires SNF services: No Overall status at discharge: patient is progressing back to baseline Medical - DS: Qual - VTE Deep Vein Thrombosis/Pulmonary Embolism Present on Admission: No
--- NOTE | 2016-09-30 12:34 | XRay Report ---
CLINICAL INFORMATION: Follow pneumonia COMPARISON: 09/21/2016 FINDINGS: Heart size, mediastinum and pulmonary vessels are normal. Small lingular infiltrate has improved slightly. A tiny left pleural effusion noted. IMPRESSION: Small lingular infiltrate with slight improvement Small left pleural effusion Interpreted and Authenticated by: Danielito Espinosa 09/30/16
== END 2016-09-30 13:55 | disposition home or self-care (01) ==
LOC: ED 08:20 → ICU 14:21 → INTOOBSV 14:30
PROVIDERS: ADMIT Internal Medicine; ATTEND Internal Medicine

== ENCOUNTER 2024-03-20 10:00 | Inpatient (IN) ==
[2024-03-20] MEDS: ONDANSETRON 4 MG/2 ML VIAL IV ONE (10:28)
[2024-03-20 10:55] LABS: Basophils # (Auto) 0.03 K/mcL (0.00-0.30); Basophils % (Auto) 0.7 % (0.0-2.0); Eosinophils # (Auto) 0.13 K/mcL (0.00-0.70); Eosinophils % (Auto) 3.1 % (0.0-7.0); Hematocrit 36.4 % (34.1-44.9); Hemoglobin 12.3 g/dL (11.2-15.7); Lymphocytes # (Auto) 0.56 K/mcL (1.50-4.80); Lymphocytes % (Auto) 13.3 % (15.5-49.0); Mean Cell Volume 95.3 fL (80.0-100.0); Mean Corpuscular HGB Conc 33.8 g/dL (31.0-36.0); Mean Platelet Volume 11.3 fL (8.8-12.5); Monocytes # (Auto) 0.66 K/mcL (0.10-0.90); Monocytes % (Auto) 15.7 % (1.0-12.0); Platelet Count 229 K/mcL (140-440); RBC 3.82 M/mcL (3.59-5.38); Red Cell Distribution Width 12.1 % (11.5-14.5); WBC 4.2 K/mcL (4.5-11.0)
[2024-03-20 11:07] LABS: ALT/SGPT 18 U/L (<40); AST/SGOT 32 U/L (<32); Albumin 4.4 gm/dL (3.2-5.2); Albumin/Globulin Ratio 1.7 (1.0-2.3); Alkaline Phosphatase 47 U/L (39-117); Bilirubin,Total 0.6 mg/dL (0.1-1.0); Blood Urea Nitrogen 18 mg/dL (8-23); Calcium 8.8 mg/dL (8.6-10.4); Carbon Dioxide 22 mmol/L (22-30); Chloride 92 mmol/L (96-108); Globulin 2.6 gm/dL (2.2-3.7); Glomerular Filtration Rate 80; Glucose 100 mg/dL (70-105); Potassium 4.1 mmol/L (3.3-5.1); Sodium 127 mmol/L (133-145)
[2024-03-20 11:40] LABS: Phosphorous 3.7 mg/dL (2.5-4.5)
[2024-03-20] MEDS: diphenhydrAMINE 50 MG/ML VIAL IV ONE (11:41)
[2024-03-20] MEDS: METOCLOPRAMIDE 10 MG/2 ML VIAL IV ONE (11:42)
[2024-03-20 13:50] LABS: Sodium 127 mmol/L (133-145)
[2024-03-20 13:52] LABS: Appearance,Urine Clear (Clear); Bilirubin,Urine Negative (Negative); Color,Urine Yellow; Glucose,Urine (UA) Negative (Negative); Ketones,Urine 80 mg/dL (Negative); Leukocyte Esterase,Urine Negative /uL (Negative); Nitrate,Urine Negative (Negative); Protein,Urine Negative (Negative); Specific Gravity,Urine 1.025 (1.000-1.035); Urine Blood Negative ery/mcL (Negative); Urine RBC 0 /hpf (0-3); Urine Squamous Epithelial Cell 2 /hpf (0-4); Urine WBC 0 /hpf (0-4); Urobilinogen,Urine Normal
[2024-03-20 15:35] LABS: Sodium, Urine Random 82 mmol/L
[2024-03-20 15:36] LABS: Osmolality,Urine 591 mOSM/kg (80-1000)
[2024-03-20 17:03] LABS: Free T4 (Free Thyroxine) 1.44 ng/dL (0.93-1.70); Thyroid Stimulating Hormone 7.71 uIU/mL (0.27-5.01)
[2024-03-20] MEDS ORDERED: ONDANSETRON 4 MG/2 ML VIAL IV PRN (17:21)
[2024-03-20] MEDS ORDERED: DICYCLOMINE 20 MG/2 ML VIAL IM PRN (17:21)
[2024-03-20] MEDS ORDERED: PROCHLORPERAZINE 10 MG/2 ML VIAL IV PRN (17:21)
[2024-03-20] MEDS: SODIUM CHLORIDE 1 GM TABLET PO SCH (17:47)
[2024-03-20 18:32] LABS: Sodium 128 mmol/L (133-145)
[2024-03-20] MEDS: FAMOTIDINE 20 MG TABLET PO SCH (20:09)
[2024-03-20] MEDS: ACETAMINOPHEN 325 MG TABLET PO PRN (20:09)
[2024-03-20] MEDS: LORazepam 1 MG TABLET PO SCH (20:09)
[2024-03-20] MEDS: ENOXAPARIN 40 MG/0.4 ML SYRINGE SQ SCH (20:10)
[2024-03-20] MEDS: 0.9 % SODIUM CHLORIDE 10 ML SYRINGE IV SCH (22:44)
[2024-03-20 23:45] LABS: Sodium 131 mmol/L (133-145)
[2024-03-21 07:04] LABS: ALT/SGPT 16 U/L (<40); AST/SGOT 27 U/L (<32); Albumin 3.9 gm/dL (3.2-5.2); Albumin/Globulin Ratio 1.6 (1.0-2.3); Alkaline Phosphatase 41 U/L (39-117); Bilirubin,Direct < 0.2 mg/dL (0-0.3); Bilirubin,Total 0.4 mg/dL (0.1-1.0); Blood Urea Nitrogen 21 mg/dL (8-23); Calcium 8.7 mg/dL (8.6-10.4); Carbon Dioxide 22 mmol/L (22-30); Chloride 98 mmol/L (96-108); Globulin 2.4 gm/dL (2.2-3.7); Glomerular Filtration Rate 80; Glucose 90 mg/dL (70-105); Lactate Dehydrogenase 134 U/L (135-225); Phosphorous 3.5 mg/dL (2.5-4.5); Potassium 4.1 mmol/L (3.3-5.1); Sodium 134 mmol/L (133-145); Triglycerides 51 mg/dL (<150); Uric Acid 4.3 mg/dL (2.5-8.0)
[2024-03-21 07:55] LABS: Basophils # (Auto) 0.03 K/mcL (0.00-0.30); Basophils % (Auto) 0.7 % (0.0-2.0); Eosinophils # (Auto) 0.11 K/mcL (0.00-0.70); Eosinophils % (Auto) 2.6 % (0.0-7.0); Hematocrit 33.8 % (34.1-44.9); Hemoglobin 11.4 g/dL (11.2-15.7); Lymphocytes # (Auto) 0.82 K/mcL (1.50-4.80); Lymphocytes % (Auto) 19.1 % (15.5-49.0); Mean Cell Volume 95.8 fL (80.0-100.0); Mean Corpuscular HGB Conc 33.7 g/dL (31.0-36.0); Mean Platelet Volume 11.8 fL (8.8-12.5); Monocytes # (Auto) 0.79 K/mcL (0.10-0.90); Monocytes % (Auto) 18.4 % (1.0-12.0); Neutrophils % (Auto) 59.2 % (38.0-78.0); Platelet Count 212 K/mcL (140-440); RBC 3.53 M/mcL (3.59-5.38); Red Cell Distribution Width 12.5 % (11.5-14.5); WBC 4.3 K/mcL (4.5-11.0)
[2024-03-21] MEDS: SODIUM CHLORIDE 1 GM TABLET PO SCH ×2 (10:00→20:14)
[2024-03-21] MEDS ORDERED: hydrALAZINE 20 MG/ML VIAL IV PRN (15:43)
[2024-03-21] MEDS ORDERED: LORazepam 1 MG TABLET PO PRN (15:46)
[2024-03-21] MEDS: LEVOTHYROXINE 75 MCG TABLET PO SCH (17:21)
[2024-03-21] MEDS: amLODIPine 5 MG TABLET PO SCH (20:14)
[2024-03-21] MEDS: DICYCLOMINE 20 MG TABLET PO PRN (20:18)
[2024-03-22 06:58] LABS: Blood Urea Nitrogen 19 mg/dL (8-23); Calcium 8.7 mg/dL (8.6-10.4); Carbon Dioxide 24 mmol/L (22-30); Chloride 99 mmol/L (96-108); Glomerular Filtration Rate 85; Glucose 95 mg/dL (70-105); Sodium 135 mmol/L (133-145)
[2024-03-22] MEDS: BISOPROLOL 5 MG TABLET PO SCH (09:10)
[2024-03-22 12:17] VITALS: TEMP 97.1; O2SAT 98
== END 2024-03-22 13:53 | disposition home health service (06) | DRG 645 ==
LOC: ED 10:00 → MEDSUR 17:15
PROVIDERS: ADMIT Student in an Organized Health Care Education/Training Program; ATTEND Internal Medicine

== ENCOUNTER 2024-12-19 21:01 | Inpatient (IN) ==
[2024-12-19 22:16] LABS: INR 1.0 (0.9-1.1); Prothrombin Time 13.7 sec (11.9-14.5)
[2024-12-19 22:41] LABS: Basophils # (Auto) 0.03 K/mcL (0.00-0.30); Basophils % (Auto) 0.2 % (0.0-2.0); Eosinophils # (Auto) 0.16 K/mcL (0.00-0.70); Eosinophils % (Auto) 1.2 % (0.0-7.0); Hematocrit 34.1 % (34.1-44.9); Hemoglobin 11.5 g/dL (11.2-15.7); Lymphocytes # (Auto) 1.22 K/mcL (1.50-4.80); Lymphocytes % (Auto) 8.8 % (15.5-49.0); Mean Corpuscular HGB Conc 33.7 g/dL (31.0-36.0); Monocytes # (Auto) 0.88 K/mcL (0.10-0.90); Monocytes % (Auto) 6.3 % (1.0-12.0); Neutrophils % (Auto) 81.3 % (38.0-78.0); Platelet Count 263 K/mcL (140-440); RBC 3.57 M/mcL (3.59-5.38); WBC 13.9 K/mcL (4.5-11.0)
[2024-12-19 22:50] LABS: Alcohol,Blood 0.022 g/dL (<0.010)
[2024-12-19 22:59] LABS: ALT/SGPT 18 U/L (<40); AST/SGOT 38 U/L (<32); Albumin 4.1 gm/dL (3.2-5.2); Albumin/Globulin Ratio 1.5 (1.0-2.3); Alkaline Phosphatase 51 U/L (39-117); Anion Gap 14.0 (8.0-16.0); Bilirubin,Total 0.4 mg/dL (0.1-1.0); Blood Urea Nitrogen 12 mg/dL (8-23); Calcium 8.7 mg/dL (8.6-10.4); Carbon Dioxide 21 mmol/L (22-30); Chloride 98 mmol/L (96-108); Globulin 2.8 gm/dL (2.2-3.7); Glucose 120 mg/dL (70-105); Potassium 3.5 mmol/L (3.3-5.1); Sodium 133 mmol/L (133-145)
[2024-12-19] MEDS: ACETAMINOPHEN 1,000 MG/100 ML BAG IV ONE (23:10)
[2024-12-19] MEDS: ONDANSETRON 4 MG/2 ML VIAL IV ONE (23:46)
[2024-12-20 03:12] LABS: Barbiturate Screen,Urine None detected; Benzodiazepines Screen,Urine Suspect positive; Fentanyl, Urine Screen Suspect Positive; Opiate Screen,Urine Suspect Positive; Oxycodone, Urine Screen None detected; Phencyclidine Screen,Urine None detected
[2024-12-20 03:30] LABS: Bacteria,Urine Few /hpf (0); Bilirubin,Urine Negative (Negative); Color,Urine YELLOW; Glucose,Urine (UA) Negative (Negative); Ketones,Urine 5 mg/dL (Negative); Leukocyte Esterase,Urine Negative /uL (Negative); PH,Urine 6.0 (5.0-9.0); Protein,Urine Negative (Negative); Specific Gravity,Urine 1.014 (1.000-1.035); Urobilinogen,Urine Negative
[2024-12-20 03:32] LABS: Calcium Oxalate Crystals,Urine Few /hpf
[2024-12-20] MEDS: ONDANSETRON 4 MG/2 ML VIAL IV PRN ×2 (05:00→16:28)
[2024-12-20] MEDS: ACETAMINOPHEN 325 MG TABLET PO PRN (07:54)
[2024-12-20] MEDS ORDERED: POTASSIUM CHLORIDE 40 MEQ in DEXTROSE 5% IN WATER 500 ML IV PRN (08:43)
[2024-12-20] MEDS ORDERED: IPRATROPIUM/ALBUTEROL 3 ML AMPUL.NEB NEB PRN (08:43)
[2024-12-20] MEDS ORDERED: POTASSIUM CHLORIDE 20 MEQ TABLET PO PRN ×2 (08:43)
[2024-12-20] MEDS ORDERED: SENNOSIDES 1 TABLET PO PRN (08:43)
[2024-12-20] MEDS ORDERED: MAGNESIUM SULFATE 2 GM/50 ML BAG IV PRN (08:43)
[2024-12-20] MEDS ORDERED: DICYCLOMINE 20 MG TABLET PO PRN (08:50)
[2024-12-20] MEDS ORDERED: TORSEMIDE 10 MG TABLET PO PRN (08:51)
[2024-12-20] MEDS: BISOPROLOL 5 MG TABLET PO SCH (09:10)
[2024-12-20] MEDS: DOCUSATE SODIUM 100 MG CAPSULE PO SCH (09:10)
[2024-12-20] MEDS: LOSARTAN 50 MG TABLET PO SCH (09:10)
[2024-12-20] MEDS: diphenhydrAMINE 50 MG/ML VIAL IV ONE (11:10)
[2024-12-20] MEDS: LEVOTHYROXINE 75 MCG TABLET PO SCH (11:11)
[2024-12-20] MEDS ORDERED: IOPAMIDOL 100 ML BOTTLE IV ONE (13:49)
[2024-12-20] MEDS: 0.9 % SODIUM CHLORIDE 10 ML SYRINGE IV SCH (14:23)
[2024-12-20] MEDS: METOCLOPRAMIDE 10 MG/2 ML VIAL IV PRN (14:52)
[2024-12-20] MEDS: POLYETHYLENE GLYCOL 3350 17 GM PACKET PO SCH ×2 (14:52→22:43)
[2024-12-20] MEDS: SENNOSIDES 1 TABLET PO PRN (15:15)
[2024-12-20] MEDS: SENNOSIDES 1 TABLET PO ONE (15:18)
[2024-12-20] MEDS: HEPARIN 5,000 UNIT/ML VIAL SQ SCH (22:36)
[2024-12-20] MEDS: SENNOSIDES 1 TABLET PO SCH (22:40)
[2024-12-21 06:50] LABS: Basophils # (Auto) 0.03 K/mcL (0.00-0.30); Basophils % (Auto) 0.4 % (0.0-2.0); Eosinophils # (Auto) 0.01 K/mcL (0.00-0.70); Eosinophils % (Auto) 0.1 % (0.0-7.0); Hematocrit 33.3 % (34.1-44.9); Hemoglobin 11.3 g/dL (11.2-15.7); Lymphocytes # (Auto) 0.86 K/mcL (1.50-4.80); Lymphocytes % (Auto) 12.1 % (15.5-49.0); Mean Corpuscular HGB Conc 33.9 g/dL (31.0-36.0); Monocytes # (Auto) 0.71 K/mcL (0.10-0.90); Monocytes % (Auto) 10.0 % (1.0-12.0); Neutrophils % (Auto) 77.1 % (38.0-78.0); Platelet Count 264 K/mcL (140-440); RBC 3.48 M/mcL (3.59-5.38); WBC 7.1 K/mcL (4.5-11.0)
[2024-12-21 07:39] LABS: ALT/SGPT 23 U/L (<40); AST/SGOT 50 U/L (<32); Albumin 4.1 gm/dL (3.2-5.2); Albumin/Globulin Ratio 1.3 (1.0-2.3); Alkaline Phosphatase 51 U/L (39-117); Anion Gap 13.0 (8.0-16.0); Bilirubin,Direct 0.3 mg/dL (<0.3); Bilirubin,Total 0.8 mg/dL (0.1-1.0); Blood Urea Nitrogen 14 mg/dL (8-23); Calcium 8.9 mg/dL (8.6-10.4); Carbon Dioxide 21 mmol/L (22-30); Chloride 93 mmol/L (96-108); Globulin 3.1 gm/dL (2.2-3.7); Glucose 118 mg/dL (70-105); Phosphorous 3.5 mg/dL (2.5-4.5); Potassium 4.1 mmol/L (3.3-5.1); Sodium 127 mmol/L (133-145); Triglycerides 109 mg/dL (<150); Uric Acid 2.2 mg/dL (2.5-8.0)
[2024-12-21] MEDS: 0.9 % SODIUM CHLORIDE 1,000 ML IV ONE (08:36)
[2024-12-21 09:19] LABS: Thyroid Stimulating Hormone 4.17 uIU/mL (0.27-5.01)
[2024-12-21 14:16] LABS: Sodium 127 mmol/L (133-145)
[2024-12-21 19:10] LABS: Sodium, Urine Random 29 mmol/L
[2024-12-21] MEDS: SODIUM CHLORIDE 1 GM TABLET PO SCH (22:01)
[2024-12-22 06:17] LABS: Basophils # (Auto) 0.02 K/mcL (0.00-0.30); Basophils % (Auto) 0.3 % (0.0-2.0); Eosinophils # (Auto) 0.05 K/mcL (0.00-0.70); Eosinophils % (Auto) 0.7 % (0.0-7.0); Hematocrit 31.0 % (34.1-44.9); Hemoglobin 10.0 g/dL (11.2-15.7); Lymphocytes # (Auto) 0.93 K/mcL (1.50-4.80); Lymphocytes % (Auto) 12.6 % (15.5-49.0); Mean Corpuscular HGB Conc 32.3 g/dL (31.0-36.0); Monocytes # (Auto) 0.93 K/mcL (0.10-0.90); Monocytes % (Auto) 12.6 % (1.0-12.0); Neutrophils % (Auto) 73.5 % (38.0-78.0); Platelet Count 213 K/mcL (140-440); RBC 3.10 M/mcL (3.59-5.38); WBC 7.4 K/mcL (4.5-11.0)
[2024-12-22 06:40] LABS: ALT/SGPT 16 U/L (<40); AST/SGOT 38 U/L (<32); Albumin 3.4 gm/dL (3.2-5.2); Albumin/Globulin Ratio 1.3 (1.0-2.3); Alkaline Phosphatase 44 U/L (39-117); Anion Gap 9.0 (8.0-16.0); Bilirubin,Direct 0.2 mg/dL (<0.3); Bilirubin,Total 0.5 mg/dL (0.1-1.0); Blood Urea Nitrogen 10 mg/dL (8-23); Calcium 8.4 mg/dL (8.6-10.4); Carbon Dioxide 22 mmol/L (22-30); Chloride 99 mmol/L (96-108); Globulin 2.6 gm/dL (2.2-3.7); Glucose 98 mg/dL (70-105); Phosphorous 2.7 mg/dL (2.5-4.5); Potassium 3.9 mmol/L (3.3-5.1); Sodium 130 mmol/L (133-145); Triglycerides 87 mg/dL (<150); Uric Acid 1.9 mg/dL (2.5-8.0)
[2024-12-22] MEDS: POLYETHYLENE GLYCOL 3350 17 GM PACKET PO PRN (08:27)
[2024-12-23 07:08] LABS: ALT/SGPT 19 U/L (<40); AST/SGOT 36 U/L (<32); Albumin 3.5 gm/dL (3.2-5.2); Albumin/Globulin Ratio 1.3 (1.0-2.3); Alkaline Phosphatase 45 U/L (39-117); Anion Gap 11.0 (8.0-16.0); Basophils # (Auto) 0.02 K/mcL (0.00-0.30); Basophils % (Auto) 0.3 % (0.0-2.0); Bilirubin,Direct 0.3 mg/dL (<0.3); Bilirubin,Total 0.6 mg/dL (0.1-1.0); Blood Urea Nitrogen 12 mg/dL (8-23); Calcium 8.6 mg/dL (8.6-10.4); Carbon Dioxide 24 mmol/L (22-30); Chloride 99 mmol/L (96-108); Eosinophils # (Auto) 0.16 K/mcL (0.00-0.70); Eosinophils % (Auto) 2.4 % (0.0-7.0); Globulin 2.7 gm/dL (2.2-3.7); Glucose 101 mg/dL (70-105); Hematocrit 28.9 % (34.1-44.9); Hemoglobin 9.7 g/dL (11.2-15.7); Lymphocytes # (Auto) 1.29 K/mcL (1.50-4.80); Lymphocytes % (Auto) 19.2 % (15.5-49.0); Mean Corpuscular HGB Conc 33.6 g/dL (31.0-36.0); Monocytes # (Auto) 0.79 K/mcL (0.10-0.90); Monocytes % (Auto) 11.8 % (1.0-12.0); Neutrophils % (Auto) 66.0 % (38.0-78.0); Phosphorous 3.2 mg/dL (2.5-4.5); Platelet Count 263 K/mcL (140-440); Potassium 3.9 mmol/L (3.3-5.1); RBC 2.97 M/mcL (3.59-5.38); Sodium 134 mmol/L (133-145); Triglycerides 100 mg/dL (<150); Uric Acid 1.9 mg/dL (2.5-8.0); WBC 6.7 K/mcL (4.5-11.0)
[2024-12-23] MEDS: LIDOCAINE 4% TOP PATCH TOPICAL SCH (17:53)
[2024-12-24] MEDS: ACETAMINOPHEN 325 MG TABLET PO PRN (01:40)
[2024-12-24] MEDS: METHOCARBAMOL 500 MG TABLET PO PRN (01:41)
[2024-12-24 06:58] LABS: ALT/SGPT 21 U/L (<40); AST/SGOT 37 U/L (<32); Albumin 3.6 gm/dL (3.2-5.2); Albumin/Globulin Ratio 1.3 (1.0-2.3); Alkaline Phosphatase 49 U/L (39-117); Anion Gap 10.0 (8.0-16.0); Bilirubin,Direct 0.3 mg/dL (<0.3); Bilirubin,Total 0.8 mg/dL (0.1-1.0); Blood Urea Nitrogen 11 mg/dL (8-23); Calcium 8.7 mg/dL (8.6-10.4); Carbon Dioxide 24 mmol/L (22-30); Chloride 100 mmol/L (96-108); Globulin 2.8 gm/dL (2.2-3.7); Glucose 101 mg/dL (70-105); Phosphorous 3.5 mg/dL (2.5-4.5); Potassium 3.9 mmol/L (3.3-5.1); Sodium 134 mmol/L (133-145); Triglycerides 100 mg/dL (<150); Uric Acid 1.6 mg/dL (2.5-8.0)
[2024-12-24 07:14] LABS: Basophils # (Auto) 0.02 K/mcL (0.00-0.30); Basophils % (Auto) 0.3 % (0.0-2.0); Eosinophils # (Auto) 0.25 K/mcL (0.00-0.70); Eosinophils % (Auto) 3.4 % (0.0-7.0); Hematocrit 30.7 % (34.1-44.9); Hemoglobin 10.3 g/dL (11.2-15.7); Lymphocytes # (Auto) 1.30 K/mcL (1.50-4.80); Lymphocytes % (Auto) 17.7 % (15.5-49.0); Mean Corpuscular HGB Conc 33.6 g/dL (31.0-36.0); Monocytes # (Auto) 0.76 K/mcL (0.10-0.90); Monocytes % (Auto) 10.3 % (1.0-12.0); Neutrophils % (Auto) 68.2 % (38.0-78.0); Platelet Count 292 K/mcL (140-440); RBC 3.19 M/mcL (3.59-5.38); WBC 7.4 K/mcL (4.5-11.0)
[2024-12-24] MEDS: FAMOTIDINE 20 MG TABLET PO PRN (08:32)
[2024-12-24] MEDS ORDERED: ACETAMINOPHEN 325 MG TABLET PO PRN (09:30)
[2024-12-24 12:21] LABS: Bacteria,Urine Few /hpf (0); Bilirubin,Urine Negative (Negative); Color,Urine Yellow; Glucose,Urine (UA) Negative (Negative); Ketones,Urine 5(Trace) mg/dL (Negative); Leukocyte Esterase,Urine 1+(Small) /uL (Negative); PH,Urine 7.5 (5.0-9.0); Protein,Urine Negative (Negative); Specific Gravity,Urine 1.015 (1.000-1.035); Urobilinogen,Urine Negative
[2024-12-24] MEDS: cefTRIAXone 2 GM in DEXTROSE 5% IN WATER 50 ML IV ONE (14:22)
[2024-12-24] MEDS: CEFUROXIME 500 MG TABLET PO SCH (23:46)
[2024-12-25 02:09] LABS: Lorazepam Confirm, Urine 1313 ng/mL (Cutoff=100)
[2024-12-25 06:57] LABS: Basophils # (Auto) 0.05 K/mcL (0.00-0.30); Basophils % (Auto) 0.7 % (0.0-2.0); Eosinophils # (Auto) 0.13 K/mcL (0.00-0.70); Eosinophils % (Auto) 1.9 % (0.0-7.0); Hematocrit 30.0 % (34.1-44.9); Hemoglobin 9.9 g/dL (11.2-15.7); Lymphocytes # (Auto) 1.21 K/mcL (1.50-4.80); Lymphocytes % (Auto) 17.9 % (15.5-49.0); Mean Corpuscular HGB Conc 33.0 g/dL (31.0-36.0); Monocytes # (Auto) 0.78 K/mcL (0.10-0.90); Monocytes % (Auto) 11.5 % (1.0-12.0); Neutrophils % (Auto) 67.7 % (38.0-78.0); Platelet Count 314 K/mcL (140-440); RBC 3.05 M/mcL (3.59-5.38); WBC 6.8 K/mcL (4.5-11.0)
[2024-12-25 07:23] LABS: ALT/SGPT 22 U/L (<40); AST/SGOT 32 U/L (<32); Albumin 3.7 gm/dL (3.2-5.2); Albumin/Globulin Ratio 1.3 (1.0-2.3); Alkaline Phosphatase 49 U/L (39-117); Anion Gap 12.0 (8.0-16.0); Bilirubin,Direct 0.3 mg/dL (<0.3); Bilirubin,Total 0.7 mg/dL (0.1-1.0); Blood Urea Nitrogen 10 mg/dL (8-23); Calcium 8.8 mg/dL (8.6-10.4); Carbon Dioxide 24 mmol/L (22-30); Chloride 99 mmol/L (96-108); Globulin 2.9 gm/dL (2.2-3.7); Glucose 99 mg/dL (70-105); Phosphorous 3.5 mg/dL (2.5-4.5); Potassium 3.5 mmol/L (3.3-5.1); Sodium 135 mmol/L (133-145); Triglycerides 79 mg/dL (<150); Uric Acid 1.9 mg/dL (2.5-8.0)
[2024-12-25] MEDS: ACETAMINOPHEN 500 MG TABLET PO PRN (09:20)
[2024-12-25 12:10] VITALS: TEMP 97.8; O2SAT 97
[2024-12-25] MEDS ORDERED: CEPHALEXIN 500 MG CAPSULE PO SCH (21:00)
== END 2024-12-25 13:04 | DRG 184 ==
LOC: ED 21:01 → MEDSUR 12-20 01:15
PROVIDERS: ADMIT Internal Medicine; ATTEND Student in an Organized Health Care Education/Training Program